=== PATIENT | male | born 1975 | race Caucasian/White ===

== ENCOUNTER 2021-07-06 06:28 | Day surgery (SDC) | payer OTHER ==
[2021-07-06] MEDS: Lactated Ringers 1,000 ML IV SCH (06:46)
[2021-07-06] MEDS ORDERED: Propofol 200 MG/20 ML SDV ONE ×2 (07:55→08:02)
[2021-07-06] MEDS ORDERED: fentaNYL 100 MCG/2 ML SDV ONE (07:57)
--- NOTE | 2021-07-06 12:52 | OR ---
PREOPERATIVE DIAGNOSES: 1. Recent episode of uncomplicated diverticulitis. 2. Bright red blood per rectum. POSTOPERATIVE DIAGNOSES: 1. Recent episode of uncomplicated diverticulitis. 2. Bright red blood per rectum. PROCEDURE PERFORMED: Total flexible colonoscopy. ANESTHESIA: MAC anesthesia. COMPLICATIONS: None. BLOOD LOSS: Minimal. FINDINGS: 1. Rectal polyps x2, 3 mm and 4 mm, cold snare. 2. No significant diverticulosis seen. 3. No masses, large polyps, or AVMs as a source of bright red blood per rectum. 4. [id number] hemorrhoidal tissue. INDICATIONS FOR PROCEDURE: Keagan Sanchez is a 46-year-old male who is here for a diagnostic colonoscopy. He recently had an episode of diverticulitis and has also noticed some blood in his stool. He has no family history of colorectal cancer. No abdominal pain or other symptoms. DETAILS OF PROCEDURE: Informed consent was obtained. The patient was brought to the procedure room and placed in the left lateral decubitus position. MAC anesthesia was induced by Anesthesia colleagues. The colonoscope was introduced into the rectum and advanced all the way to the cecum. The appendiceal orifice was photographed. Terminal ileum was intubated and was grossly normal. This was photographed. The colonoscope was then slowly withdrawn. No pathology was identified except for what is mentioned in the above findings section. The retroflexed view was obtained and the colonoscope was removed. The patient tolerated the procedure well, was awoken from anesthesia by Anesthesia colleagues without incident. RKM: 07/06/2021 08:26:39 MODL: 07/06/2021 10:55:20 /[id number]
== END 2021-07-06 09:10 | disposition home or self-care (01) ==
LOC: VM.SDS 06:28
PROVIDERS: ATTEND Student in an Organized Health Care Education/Training Program
DX: K62.1 Rectal polyp (principal); K57.33 Diverticulitis of large intestine without perforation or abscess with bleeding; K64.9 Unspecified hemorrhoids; I10 Essential (primary) hypertension; E78.5 Hyperlipidemia, unspecified; J45.909 Unspecified asthma, uncomplicated; E66.9 Obesity, unspecified; Z79.899 Other long term (current) drug therapy; Z87.891 Personal history of nicotine dependence
CPT/HCPCS: 00811; 45385; J2704; J3010; J7120

== ENCOUNTER 2021-09-25 07:37 | Emergency (ER) | payer OTHER ==
[2021-09-25] MEDS ORDERED: Sodium Chloride 0.9% 10 ML Syringe FLUSH PRN (07:41)
--- NOTE | 2021-09-25 08:06 | EDM.PDOC ---
ED HPI GENERAL MEDICAL PROBLEM - General Stated Complaint: ER Time Seen by Provider: 09/25/21 07:41 Source of Information: Reports: Patient - History of Present Illness INITIAL COMMENTS - FREE TEXT/NARRATIVE: Keagan is a 46 y/o male who comes to the ER reporting that "I just don't feel right." He woke up this AM with dizziness and it has continued since waking. He also has had left hand numbness and tingling for the last day. He admits he feels a little "confused", but seems to be able to answer questions okay. He did drive himself here. Denies any previous sx like this before. - Related Data Allergies Allergy/AdvReac Type Severity Reaction Status Date / Time No Known Allergies Allergy Verified 07/06/21 06:46 Home Meds: Home Meds Albuterol Sulfate [Albuterol Sulfate HFA] 2 puff INH Q4H PRN 06/14/21 [History] Aspirin [Halfprin] 162 mg PO DAILY 06/14/21 [History] Clobetasol Propionate [Temovate 0.05% Oint] 1 applic TP BID 06/14/21 [History] Pantoprazole Sodium [Protonix] 40 mg PO DAILY 06/14/21 [History] lisinopriL [Lisinopril] 5 mg PO DAILY 06/14/21 [History] Past Medical History Cardiovascular History: Reports: High Cholesterol, Hypertension Respiratory History: Reports: Asthma Gastrointestinal History: Reports: GERD Musculoskeletal History: Reports: Other (See Below) Other Musculoskeletal History: post-traumatic osteoarthritis of left knee Dermatologic History: Reports: Psoriasis - Past Surgical History HEENT Surgical History: Reports: Oral Surgery Musculoskeletal Surgical History: Reports: Arthroscopic Knee, Other (See Below) Other Musculoskeletal Surgeries/Procedures:: elbow fracture surgery Review of Systems - Review of Systems Review Of Systems: See Below Constitutional: Reports: Weakness Eyes: Reports: No Symptoms Ears: Reports: Dizziness Nose: Reports: No Symptoms Mouth/Throat: Reports: No Symptoms Respiratory: Reports: No Symptoms Cardiovascular: Reports: No Symptoms GI/Abdominal: Reports: No Symptoms Genitourinary: Reports: No Symptoms Musculoskeletal: Reports: No Symptoms Skin: Reports: No Symptoms Neurological: Reports: Confusion, Dizziness, Paresthesia, Tingling Psychiatric: Reports: No Symptoms ED EXAM, GENERAL - Physical Exam Exam: See Below Exam Limited By: No Limitations (Adult male) General Appearance: Alert, WD/WN, No Apparent Distress Eye Exam: Bilateral Eye: Nystagmus (None), PERRL Ears: Normal External Exam, Normal Canal, Hearing Grossly Normal, Normal TMs Nose: Normal Inspection, Normal Mucosa Throat/Mouth: Normal Inspection, Normal Lips, Normal Oropharynx, Normal Voice Head: Atraumatic, Normocephalic Neck: Normal Inspection, Supple, Non-Tender Respiratory/Chest: No Respiratory Distress, Lungs Clear, Chest Non-Tender Cardiovascular: Normal Peripheral Pulses, Regular Rate, Rhythm, No Murmur GI/Abdominal: Normal Bowel Sounds, Soft, Non-Tender (Male) Exam: Deferred Rectal (Males) Exam: Deferred Back Exam: Normal Inspection, Full Range of Motion Extremities: Normal Inspection, Normal Range of Motion, Normal Capillary Refill Neurological: Alert, Oriented, CN II-XII Intact, Normal Gait, No Motor/Sensory Deficits, Other (NIHSS=0) Psychiatric: Normal Affect Skin Exam: Warm, Dry, Intact, Normal Color #1 Interpretation EKG Date: 09/25/21 Time: 07:39 Rhythm: NSR Rate (Beats/Min): 83 [place]: Normal P-Wave: Present QRS: Normal ST-T: Normal QT: Normal Comparison: NA - No Prior EKG EKG Interpretation Comments: Normal Sinus Rhythm Course - Vital Signs Text/Narrative:: 0741 The patient was seen by the [employer]. Stroke Code called for the acute dizziness and confusion. Labs and EKG ordered. 0745 [facility] contacted and case presented due to no CT availability. Dr Danielson in the ER accepted the patient for transfer. 0810 Patient was complaining of mild nausea and IV fluids hung. He left the ER in stable condition with [facility]. Medics to given Zofran enroute for the nausea, - Orders/Labs/Meds Orders: Active Orders 24 hr Category Date Time Status EKG Documentation Completion [RC] STAT Care 09/25/21 07:41 Active Sodium Chloride 0.9% @ Wide Open(1,000ml) Med 09/25/21 08:22 Ordered Sodium Chloride 0.9% [Normal Saline] 1,000 ml IV ONETIME Sodium Chloride 0.9% [Saline Flush] Med 09/25/21 07:41 Active 10 ml FLUSH ASDIRECTED PRN Saline Lock Insert [OM.PC] Stat Oth 09/25/21 07:41 Ordered Medication Orders Sodium Chloride (Normal Saline) 1,000 mls @ 999 mls/hr IV ONETIME ONE Stop: 09/25/21 09:22 Sodium Chloride (Sodium Chloride 0.9% 10 Ml Syringe) 10 ml FLUSH ASDIRECTED PRN PRN Reason: Keep Vein Open Labs: Laboratory Tests 09/25/21 09/25/21 09/25/21 Range/Units 07:42 07:48 07:48 WBC 8.1 (4.0-10.0) x10^3/uL RBC 4.86 (4.5-6.0) x10^6/uL Hgb 15.3 (14.0-18.0) g/dL Hct 42.8 (40.0-52.0) % MCV 88.1 (78.0-93.0) fL MCH 31.5 (26.0-32.0) pg MCHC 35.7 (32.0-36.0) g/dL RDW Coeff of Eric 11.3 (10.0-15.0) % Plt Count 356 (130-400) x10^3/uL Immature Gran % (Auto) 0.40 (0.00-0.43) % Neut % (Auto) 53.0 (50.0-80.0) % Lymph % (Auto) 31.5 (25.0-50.0) % [place] % (Auto) 11.1 H (2.0-11.0) % Eos % (Auto) 3.1 (0.0-4.0) % Baso % (Auto) 0.9 (0.2-1.2) % Neut # (Auto) 4.3 (1.8-7.7) x10^3/uL Lymph # (Auto) 2.6 (1.0-4.8) x10^3/uL [place] # (Auto) 0.9 H (0.0-0.8) x10^3/uL Eos # (Auto) 0.3 (0.0-0.5) x10^3/uL Baso # (Auto) 0.1 (0.0-0.2) x10^3/uL Immature Gran # (Auto) 0.03 (0.00-0.07) x10^3/uL PT 10.1 (9.9-12.5) SEC INR 0.9 L (2.0-3.5) APTT 22.6 L (25.6-32.8) SEC Sodium (136-145) mmol/L Potassium (3.5-5.1) mmol/L Chloride (98-107) mmol/L Carbon Dioxide (21-32) mmol/L Anion Gap (5-15) mmol/L BUN (7-18) mg/dL Creatinine (0.70-1.30) mg/dL Est Cr Clr Drug Dosing Estimated GFR (MDRD) Glucose (70-99) mg/dL POC Glucose 102 H (70-99) mg/dL Calcium (8.5-10.1) mg/dL Corrected Calcium (8.5-10.1) mg/dL Magnesium (1.8-2.4) mg/dL Total Bilirubin (0.2-1.0) mg/dL AST (15-37) U/L ALT (16-63) U/L Alkaline Phosphatase (46-116) U/L Troponin I High Sens (<=76) ng/L Total Protein (6.4-8.2) g/dL Albumin (3.4-5.0) g/dL Globulin Albumin/Globulin Ratio Ethyl Alcohol (0-3) mg/dL 09/25/21 Range/Units 07:48 WBC (4.0-10.0) x10^3/uL RBC (4.5-6.0) x10^6/uL Hgb (14.0-18.0) g/dL Hct (40.0-52.0) % MCV (78.0-93.0) fL MCH (26.0-32.0) pg MCHC (32.0-36.0) g/dL RDW Coeff of Eric (10.0-15.0) % Plt Count (130-400) x10^3/uL Immature Gran % (Auto) (0.00-0.43) % Neut % (Auto) (50.0-80.0) % Lymph % (Auto) (25.0-50.0) % [place] % (Auto) (2.0-11.0) % Eos % (Auto) (0.0-4.0) % Baso % (Auto) (0.2-1.2) % Neut # (Auto) (1.8-7.7) x10^3/uL Lymph # (Auto) (1.0-4.8) x10^3/uL [place] # (Auto) (0.0-0.8) x10^3/uL Eos # (Auto) (0.0-0.5) x10^3/uL Baso # (Auto) (0.0-0.2) x10^3/uL Immature Gran # (Auto) (0.00-0.07) x10^3/uL PT (9.9-12.5) SEC INR (2.0-3.5) APTT (25.6-32.8) SEC Sodium 140 (136-145) mmol/L Potassium 3.3 L (3.5-5.1) mmol/L Chloride 102 (98-107) mmol/L Carbon Dioxide 26 (21-32) mmol/L Anion Gap 15.3 H (5-15) mmol/L BUN 17 (7-18) mg/dL Creatinine 1.1 (0.70-1.30) mg/dL Est Cr Clr Drug Dosing TNP Estimated GFR (MDRD) > 60 Glucose 101 H (70-99) mg/dL POC Glucose (70-99) mg/dL Calcium 8.8 (8.5-10.1) mg/dL Corrected Calcium 8.9 (8.5-10.1) mg/dL Magnesium 2.0 (1.8-2.4) mg/dL Total Bilirubin 0.4 (0.2-1.0) mg/dL AST 12 L (15-37) U/L ALT 35 (16-63) U/L Alkaline Phosphatase 61 (46-116) U/L Troponin I High Sens < 4 (<=76) ng/L Total Protein 7.3 (6.4-8.2) g/dL Albumin 3.9 (3.4-5.0) g/dL Globulin 3.4 Albumin/Globulin Ratio 1.15 Ethyl Alcohol < 3 (0-3) mg/dL Meds: Medications Generic Name Dose Route Start Last Admin Trade Name Freq PRN Reason Stop Dose Admin Sodium Chloride 1,000 mls @ 999 mls/hr 09/25/21 08:22 Normal Saline IV 09/25/21 09:22 ONETIME ONE Sodium Chloride 10 ml 09/25/21 07:41 Sodium Chloride 0.9% 10 Ml Syringe FLUSH ASDIRECTED PRN Keep Vein Open Discontinued Medications Generic Name Dose Route Start Last Admin Trade Name Damiánq PRN Reason Stop Dose Admin Ondansetron HCl 4 mg 09/25/21 08:22 Ondansetron 4 Mg/2 Ml Sdv IVPUSH 09/25/21 08:23 ONETIME ONE Departure - Departure Time of Disposition: 07:54 Disposition: DC/Tfer to [facility] 02 Condition: Good Clinical Impression: Dizziness of unknown cause, Numbness and tingling in left hand - Discharge Information Forms: Interfacility Transfer EMTALA Additional Instructions: -Transfer to [facility] to Dr Danielson via [facility] - Problem List & Annotations (1) Dizziness of unknown cause SNOMED Code(s): 842978768 Code(s): R42 - DIZZINESS AND GIDDINESS Status: Acute (2) Numbness and tingling in left hand SNOMED Code(s): 545986217 Code(s): R20.0 - ANESTHESIA OF SKIN; R20.2 - PARESTHESIA OF SKIN Status: Acute Annotation/Comment:: Stroke code called, no CT availble in [place]. Patient transferred to [place]. - Problem List Review Problem List Initiated/Reviewed/Updated: Yes - My Orders Last 24 Hours: My Active Orders 09/25/21 07:41 EKG Documentation Completion [RC] STAT Sodium Chloride 0.9% [Saline Flush] 10 ml FLUSH ASDIRECTED PRN Saline Lock Insert [OM.PC] Stat 09/25/21 08:22 Sodium Chloride 0.9% @ Wide Open(1,000ml) Sodium Chloride 0.9% [Normal Saline] 1,000 ml IV ONETIME - Assessment/Plan Last 24 Hours: My Active Orders 09/25/21 07:41 EKG Documentation Completion [RC] STAT Sodium Chloride 0.9% [Saline Flush] 10 ml FLUSH ASDIRECTED PRN Saline Lock Insert [OM.PC] Stat 09/25/21 08:22 Sodium Chloride 0.9% @ Wide Open(1,000ml) Sodium Chloride 0.9% [Normal Saline] 1,000 ml IV ONETIME Plan: As above
[2021-09-25 08:16] LABS: PTT,PARTIAL THROMBOPLSTIN TIME 22.6 SEC (25.6-32.8)
[2021-09-25 08:17] LABS: CHLORIDE,CL 102 mmol/L (98-107); SODIUM,NA 140 mmol/L (136-145)
[2021-09-25 08:19] LABS: ANION GAP 15.3 mmol/L (5-15)
[2021-09-25] MEDS ORDERED: Sodium Chloride 0.9% 1,000 ML IV ONE (08:22)
[2021-09-25] MEDS ORDERED: Ondansetron 4 MG/2 ML SDV IVPUSH ONE (08:22)
== END 2021-09-25 08:20 | disposition short-term general hospital (02) ==
LOC: VM.ED 07:37
DX: R42 Dizziness and giddiness (principal); R20.0 Anesthesia of skin; I10 Essential (primary) hypertension; J45.909 Unspecified asthma, uncomplicated; K21.9 Gastro-esophageal reflux disease without esophagitis; Z79.82 Long term (current) use of aspirin; Z79.899 Other long term (current) drug therapy
CPT/HCPCS: 80053; 80307; 82947; 83735; 84484; 85025; 85610; 85730; 93010; 99284; 99285-25

== ENCOUNTER 2022-01-28 21:53 | Emergency (ER) | payer OTHER ==
[2022-01-28 23:00] LABS: CHLORIDE,CL 104 mmol/L (98-107); SODIUM,NA 141 mmol/L (136-145)
[2022-01-28 23:01] LABS: ANION GAP 13.9 mmol/L (5-15)
[2022-01-28] MEDS: Potassium Chloride Riders 20 MEQ in Premix Bag 1 BAG IV ONE (23:34)
== END 2022-01-29 03:55 | disposition home or self-care (01) ==
LOC: VM.ED 21:53
DX: E87.6 Hypokalemia (principal); E03.9 Hypothyroidism, unspecified; E78.00 Pure hypercholesterolemia, unspecified; I10 Essential (primary) hypertension; K21.9 Gastro-esophageal reflux disease without esophagitis; J45.909 Unspecified asthma, uncomplicated; Z79.82 Long term (current) use of aspirin; Z79.02 Long term (current) use of antithrombotics/antiplatelets; Z79.899 Other long term (current) drug therapy
CPT/HCPCS: 36415; 71046; 80053; 82550; 83615; 83735; 84132; 84436; 84443; 84484; 85025; 85379; 93005; 93010; 96365; 96366; 99284; 99285-25; J3480

== ENCOUNTER 2022-05-29 13:46 | Emergency (ER) | payer OTHER ==
[2022-05-29 14:59] LABS: ANION GAP 15.7 mmol/L (5-15); CHLORIDE,CL 102 mmol/L (98-107); ESTIMATED GFR 107 mL/min (>=60); SODIUM,NA 141 mmol/L (136-145)
== END 2022-05-29 15:13 | disposition home or self-care (01) ==
LOC: VM.ED 13:46
DX: R00.2 Palpitations (principal); I10 Essential (primary) hypertension; K21.9 Gastro-esophageal reflux disease without esophagitis; Z79.899 Other long term (current) drug therapy
CPT/HCPCS: 36415; 71046; 80053; 82550; 83615; 83735; 84443; 84484; 85025; 86140; 93010; 99284; 99285-25